=== PATIENT | male | born 1925 | race African-American/Black ===

== ENCOUNTER → 2016-12-11 | Outpatient (CLI) | payer BC ==
--- NOTE | 2016-12-11 09:44 | KCIC ---
Indication: Prostate cancer. Bone mineral analysis of the lumbar spine and left hip was performed. Correlation is made with prior exam from 07/18/2013. The bone mineral density of the lumbar spine from L1 to L4 is 1.310 with a T score of 2.0. This compares with 1.309 and 2.0 on prior. The bone mineral density of the left hip is 1.314 with a T score of 1.9. This compares with 1.293 and 1.7 on prior. IMPRESSION: Normal bone mineral density of the lumbar spine and left hip. Electronically signed by: Kali West MD (12/11/2016 9:40 AM) [id number]
== END | disposition home or self-care (01) ==
LOC: KCIC DEXA 08:30
PROVIDERS: ATTEND Urology
DX: C61 Malignant neoplasm of prostate (principal); M85.89 Other specified disorders of bone density and structure, multiple sites
CPT/HCPCS: 77080